=== PATIENT | female | born 1975 | race Two or more races ===

== ENCOUNTER 2024-02-21 00:15 | Emergency (ER) | payer OTHER ==
[~2024-02-21] VITALS: Ht 162.6 cm; Wt 72.0 kg
[2024-02-21 00:19] VITALS: BP 196/109; TEMP 98.2; O2SAT 100
[2024-02-21 00:21] VITALS: PULSE 77; RESP 16
== END 2024-02-21 01:41 | disposition home or self-care (01) ==
LOC: ER 00:32
DX: I10 Essential (primary) hypertension (principal)
CPT/HCPCS: 99281; Z7610